=== PATIENT | male | born 1995 | race Caucasian/White ===

== ENCOUNTER 2018-09-21 13:29 | Emergency (ER) | payer BC ==
[2018-09-21 13:41] VITALS: TEMP 98.4
[2018-09-21 13:56] VITALS: BP 125/77; PULSE 82; RESP 16; O2SAT 92
--- NOTE | 2018-09-21 14:26 | C.PDOC ---
History Of Present Illness Patient admits to smoking PCP today. No other drug use. Police found him running around in traffic. Patient denies SI/HI. He is AAOx3. Time Seen by Provider: 09/21/18 13:59 Chief Complaint (Nursing): Substance Abuse Past Medical History Reviewed: Historical Data, Nursing Documentation, Vital Signs Vital Signs: Last Vital Signs Temp 98.4 F 09/21/18 13:40 Pulse 82 09/21/18 13:55 Resp 16 09/21/18 13:55 BP 125/77 09/21/18 13:55 Pulse Ox 92 L 09/21/18 13:55 - Medical History PMH: No Chronic Diseases Family History: States: Unknown Family Hx - Social History Hx Tobacco Use: Yes Hx Alcohol Use: Yes Hx Substance Use: Yes - Immunization History Hx Tetanus Toxoid Vaccination: Yes Hx Influenza Vaccination: Yes Hx Pneumococcal Vaccination: No Review Of Systems Except As Marked, All Systems Reviewed And Found Negative. Constitutional: Negative for: Fever, Chills Respiratory: Negative for: Cough, Shortness of Breath Gastrointestinal: Negative for: Nausea, Vomiting, Abdominal Pain, Diarrhea Neurological: Negative for: Weakness, Numbness Psych: Negative for: Depression, Suicidal ideation Physical Exam - Physical Exam Appears: Well, Toxic, No Acute Distress Skin: Normal Color, Warm, Dry Head: Atraumatic Eye(s): bilateral: Normal Inspection, PERRL, EOMI Cardiovascular: Rhythm Regular Respiratory: Normal Breath Sounds Gastrointestinal/Abdominal: Normal Exam Extremity: Normal ROM Neurological/Psych: Oriented x3, Normal Speech Gait: Steady ED Course And Treatment ECG: Interpreted By Sd ECG Rhythm: Sinus Rhythm Interpretation Of ECG: incomplete RBBB, benign early repolarization, no ST elevation Rate From EC O2 Sat by Pulse Oximetry: 92 Medical Decision Making Medical Decision Making: Patient admits to PCP use, but is AAOx3. Denies SI/HI. Stable for discharge home. Patient left the ED prior to receiving discharge paperwork. Disposition - Disposition Disposition: HOME/ ROUTINE Disposition Time: 14:25 Condition: STABLE Additional Instructions: [facility]RO[facility], thank you for letting us take care of you today. Your provider was Zulma Mejia MD and you were treated for SUBSTANCE ABUSE. The emergency medical care you received today was directed at your acute symptoms. If you were prescribed any medication, please fill it and take as directed. It may take several days for your symptoms to resolve. Return to the Emergency Department if your symptoms worsen, do not improve, or if you have any other problems. Please contact your doctor or call one of the physicians/clinics you have been referred to that are listed on the Patient Visit Information form that is included in your discharge packet. Bring any paperwork you were given at discharge with you along with any medications you are taking to your follow up visit. Our treatment cannot replace ongoing medical care by a primary care provider outside of the emergency department. Thank you for allowing the [facility] team to be part of your care today. If you had an X-Ray or CT scan: A Radiologist will review the ED reading if any change in treatment is needed we will contact you. If you had a blood, urine, or wound culture: It will take several days for the results, if any change in treatment is needed we will contact you. If you had an STI test: It will take 48 hours for the results. Please call after 1 week if you have not heard back. Instructions: Drug Abuse and Drug Addiction (DC) Forms: [facility] ([place]) - Clinical Impression Clinical Impression: Phencyclidine (PCP) use disorder, mild
--- NOTE | 2018-09-22 17:36 | CARD ---
APPROVED REPORT Date of service: 09/21/2018 EKG Measurement Heart [id number] <Conclusion> Normal sinus rhythm with sinus arrhythmia Possible Left atrial enlargement Incomplete right bundle branch block Early repolarization Nonspecific ST abnormality Abnormal ECG
== END 2018-09-21 14:31 | disposition home or self-care (01) ==
LOC: C.ER 13:29
DX: F16.90 Hallucinogen use, unspecified, uncomplicated (principal)